=== PATIENT | female | born 1980 | race Caucasian/White ===

== ENCOUNTER 2024-07-10 13:18 | Emergency (ER) | payer MEDICAID ==
[~2024-07-10] VITALS: Ht 172.7 cm; Wt 68.0 kg
[2024-07-10 13:20] VITALS: BP 118/86; PULSE 90; RESP 16; TEMP 36.8; O2SAT 98
== END 2024-07-10 14:00 | disposition left against medical advice (07) ==
LOC: ER 13:54
DX: T14.8XXA Other injury of unspecified body region, initial encounter (principal); Z53.21 Procedure and treatment not carried out due to patient leaving prior to being seen by health care provider; X58.XXXA Exposure to other specified factors, initial encounter; Y93.89 Activity, other specified; Y92.89 Other specified places as the place of occurrence of the external cause; Y99.8 Other external cause status